=== PATIENT | female | born 1960 | race Caucasian/White ===

== ENCOUNTER → 2017-10-17 | Outpatient (CLI) | payer OTHER ==
[~2017-10-17] MED LIST: IOPAMIDOL (ISOVUE-300) 100 ML BTL ONE
== END ==
LOC: CIMAGING 09:21
DX: J38.00 Paralysis of vocal cords and larynx, unspecified (principal); E03.4 Atrophy of thyroid (acquired); R59.9 Enlarged lymph nodes, unspecified; J84.10 Pulmonary fibrosis, unspecified; Z85.71 Personal history of Hodgkin lymphoma
CPT/HCPCS: 70491-PO; 71260-PO; Q9967